=== PATIENT | male | born 1965 | race Caucasian/White ===

== ENCOUNTER 2018-03-15 11:35 | Emergency (ER) | END 2018-03-15 12:55 | disposition home or self-care (01) ==

== ENCOUNTER 2018-04-03 12:31 | Emergency (ER) | END 2018-04-03 13:08 | disposition home or self-care (01) ==

== ENCOUNTER 2018-06-13 12:45 | Emergency (ER) | payer MEDICARE, OTHER ==
[~2018-06-13] VITALS: Ht 190.5 cm; Wt 83.0 kg
[~2018-06-13 12:45] MED LIST: AMOX1TAB9 PO; IBUP-1542 PO; OFLO5DRO7 BOTH EARS
[2018-06-13 13:41] VITALS: Ht 190.5 cm; Wt 83.0 kg
--- NOTE | 2018-06-13 14:16 | ERD ---
ER Documentation Chief Complaint Chief Complaint L ear discomfort x6mo; neck stiffness, runny nose x few days. ROS All systems reviewed and are negative except as per history of present illness. Medications Home Meds Active Scripts Ibuprofen* (Ibuprofen*) 600 Mg Tablet, 600 MG PO Q6H PRN for MILD PAIN(1-3)OR ELEVATED TEMP, #30 TAB Prov:VINNIE TAVARES PA-C 03/15/18 Amoxicillin/Potassium Clav (Amox-Clav 500-125 mg Tablet) 500-125 mg Tab, 1 TAB PO BID for 10 Days, TAB Prov:VINNIE TAVARES PA-C 03/15/18 Ofloxacin Otic (Ofloxacin Otic) 5 Ml Drops, 5 DROP BOTH EARS BID for 10 Days, #1 BOTTLE Prov:VINNIE TAVARES PA-C 03/15/18 PMhx/Soc History of Surgery: Yes (R femur SX, hernia repair.) Anesthesia Reaction: No Hx Neurological Disorder: No Hx Respiratory Disorders: No Hx Cardiac Disorders: No Hx Psychiatric Problems: No Hx Miscellaneous Medical Probl: Yes (HTN) Hx Alcohol Use: Yes (SOCIALLY) Hx Substance Use: No Hx Tobacco Use: No Physical Exam Vitals Vital Signs Date Temp Pulse Resp B/P (MAP) Pulse Ox O2 O2 Flow FiO2 Time Delivery Rate 06/13/18 98.5 86 16 155/76 98 13:41 (102) Physical Exam Const: No acute distress Head: Atraumatic Eyes: Normal Conjunctiva ENT: Normal External Ears, Nose and Mouth. Neck: Full range of motion. No meningismus. Resp: Clear to auscultation bilaterally Cardio: Regular rate and rhythm, no murmurs Abd: Soft, non tender, non distended. Normal bowel sounds Skin: No petechiae or rashes Back: No midline or flank tenderness Ext: No cyanosis, or edema Neur: Awake and alert Psych: Normal Mood and Affect Results 24 hrs DIAGNOSTIC IMAGING REPORT Patient: ZENIA JACKSON : 1965 Age: 53 Sex: M MR #: [id number] DOS: 06/13/18 1414 Ordering MD: CARA IBARRA MD Location: [facility] Room/Bed: PROCEDURE: CT temporal bones without contrast CLINICAL INDICATION: Bilateral chronic supp otitis. TECHNIQUE: A CT of the temporal bones without contrast was performed on a multidetector CT scanner utilizing 0.6 mm axial sections. Coronal and sagittal images were reformatted. The exam CTDIvol = 28.88 mGy and DLP = 325.79 mGy-cm. DICOM images are available. One or more of the following dose reduction techniques were utilized: 1.) Automated exposure control 2.) Adjustment of the mA +/- kV according to patient's size 3.) Use of iterative reconstruction technique. COMPARISON: None available FINDINGS: Right temporal bone: Soft tissue density is seen in the right external auditory canal with complete obliteration of the canal near the tympanic membrane. Mastoid air cells and middle ear cavity are clear. Ossicles and scutum are intact. Bony labyrinth structures are within normal limits and the otic capsule is intact. The internal auditory canal is normal in caliber. Mild mucosal thickening is seen in the ethmoid air cells. The remainder of the paranasal sinuses are clear. Left temporal bone: Mild soft tissue density is seen in the left external auditory canal adjacent to the tympanic membrane. Mastoid air cells and middle ear cavity are clear. Ossicles and scutum are intact. Bony labyrinth structures are within normal limits and the otic capsule is intact. The internal auditory canal is normal in caliber. IMPRESSION: 1. Bilateral middle ear cavities and visualized mastoid air cells are clear. No erosive changes of the ossicles. 2. Significant soft tissue density in the right external auditory canal with complete obliteration of the lumen near the tympanic membrane. 3. Mild soft tissue thickening in the left external auditory canal. RPTAT: BB .Rosio Chamberlain MD, MD Date Time Electronically viewed and signed by .Rosio Chamberlain MD, MD on 06/13/2018 15:01 .O/ CC: CARA IBARRA MD [phone] Departure Diagnosis: Primary Impression: Chronic suppurative otitis media of both ears Condition: Stable Additional Instructions: Thank you very much for allowing us to participate in your care. Your health and safety is our top priority at [facility]. Call your primary care doctor TOMORROW for an appointment during the next 2-4 days and bring all the information and medications prescribed. Have prescriptions filled and follow precisely the directions on the label. If the symptoms get worse and your provider is unavailable, return to the Emergency Department immediately. CARA IBARRA MD Jun 13, 2018 14:16
[2018-06-13 15:44] VITALS: BP 146/76; PULSE 75; RESP 19
== END 2018-06-13 15:45 | disposition home or self-care (01) ==
LOC: FTE 12:45
DX: H66.3X3 Other chronic suppurative otitis media, bilateral (principal); I10 Essential (primary) hypertension
CPT/HCPCS: 70480; 80307